=== PATIENT | male | born 1980 | race Two or more races ===

== ENCOUNTER 2017-08-23 14:37 | Emergency (ER) | payer OTHER ==
[~2017-08-23] VITALS: Ht 160 cm; Wt 71.2 kg
[2017-08-23] MEDS ORDERED: NKM (14:53)
[2017-08-23 14:56] VITALS: BP 135/84
[2017-08-23] MEDS ORDERED: Fluorescein Strips LEFT EYE ONE (15:00)
[2017-08-23] MEDS ORDERED: Tetracaine 0.5% Opth 4ml Soln LEFT EYE ONE (15:00)
--- NOTE | 2017-08-23 15:23 | Emergency Room Report ---
History of Present Illness General Chief Complaint: Eye Problems Source: Patient Present Illness HPI Patient is a 36-year-old male who presented after increased right eye irritation. Patient had injury work approximately 2 weeks ago. The patient prior to having the dirty water from work splash into his eye with soap. The patient washed out his eye initially. He presented after increased persistent pain.Patient denies any flashing lights or floaters.Patient had been using topical eye ointment without any improvement. Allergies: Coded Allergies: No Known Allergies (Unverified , 08/23/17) Patient History Past Medical History: see triage record Reviewed Nursing Documentation: PMH: Agreed; PSxH: Agreed Nursing Documentation-PMH Past Medical History: No Stated History Review of Systems All Other Systems: negative except mentioned in HPI Physical Exam Vital Signs Date Time Temp Pulse Resp B/P (MAP) Pulse Ox O2 Delivery O2 Flow Rate FiO2 08/23/17 14:46 98.4 92 18 142/87 99 Room Air 98.4 General Appearance: well appearing, no apparent distress, alert, GCS 15 Head: normocephalic, atraumatic ENT: hearing grossly normal, normal voice Neck: full range of motion, supple Respiratory: lungs clear, normal breath sounds, no respiratory distress, speaking full sentences Cardiovascular #1: normal peripheral pulses, regular rate, rhythm, no edema, no gallop Gastrointestinal: normal inspection Musculoskeletal: normal inspection, no calf tenderness Neurologic: normal inspection, alert, oriented x3, responsive, normal gait Psychiatric: mood/affect normal Skin: no rash Medical Decision Making Diagnostic Impression: Primary Impression: Chemical conjunctivitis of right eye ER Course Patient presented for right eye redness.Differential diagnosis included but wasn 't limited to glaucoma, iritis, corneal abrasion, bacterial conjunctivitis, viral conjunctivitis. Fluoresceined eye exam showed no evidence of dye uptake. Patient was noted to have what appears to be a irritant conjunctivitis. Given the patient's prolonged time to presentation he was not irrigated at this time. The patient is advised to follow up with ophthalmology in 1-2 days. Patient is advised to return if any worsening condition or if any changes in status that are concerning. This report is dictated with [employer] software which may occasionally lead to discrepancies related to use of this software. Last Vital Signs Date Time Temp Pulse Resp B/P (MAP) Pulse Ox O2 Delivery O2 Flow Rate FiO2 08/23/17 14:46 98.4 92 18 142/87 99 Room Air 98.4 Status: improved Disposition: HOME, SELF-CARE Condition: Stable Scripts Tobramycin Sulf (Tobramycin) 5 Ml Drops 1 DROP RIGHT EYE Q4H, #5 ML Prov: Ramez Meraz MD 08/23/17 Ramez Meraz MD August 23, 2017 15:22
[2017-08-23] MEDS ORDERED: AKTOB1 DROP RIGHT EYE (15:52)
[2017-08-23 16:05] VITALS: BP 135/84
== END 2017-08-23 16:39 | disposition home or self-care (01) ==
LOC: EMR 15:19
DX: H10.211 Acute toxic conjunctivitis, right eye (principal); T65.891A Toxic effect of other specified substances, accidental (unintentional), initial encounter; Y92.59 Other trade areas as the place of occurrence of the external cause
CPT/HCPCS: 99283